=== PATIENT | male | born 1995 | race African-American/Black ===

== ENCOUNTER 2017-03-06 02:26 | Emergency (ER) | payer OTHER ==
[~2017-03-06] VITALS: Ht 170.2 cm; Wt 59.2 kg
[2017-03-06 02:37] VITALS: TEMP 36.5; Ht 170.2 cm; Wt 59.2 kg
[2017-03-06 03:34] LABS: BUN/CREATININE RATIO 8.1 (10-20); CALCIUM 9.2 mg/dl (8.5-10.1); CREATININE 1.2 mg/dl (0.60-1.40); POTASSIUM 3.4 mmol/L (3.5-5.1)
[2017-03-06 04:39] LABS: BENZODIAZEPINE, URINE NEG (NEG); COCAINE,URINE NEG (NEG); PHENCYCLIDINE, URINE NEG (NEG)
--- NOTE | 2017-03-06 05:16 | EMERGENCY ROOM VISIT NOTE ---
History Report prepared by Pham: Staci Al Under the Supervision of: Dr. Lamar Grant D.O. First contact with patient: 02:28 Stated Complaint: ALCOHOL History of Present Illness The patient is a 21 year old male who presents to the Emergency Room with persistent alcohol intoxication starting [employer]. The patient presents to the ED by EMS. He was found outside by the police. He started running away so the police chased and tackled him. He got a cut on his chin. EMS report that he has some slurred speech and thought it was April. He denies any other drug use. He denies any abdominal pain or pain elsewhere. He denies any history of heart problems, diabetes, or other medical problems. He is a senior at [employer]. Source of History: patient, EMS Onset: [employer] Position: other (global) Quality: other (alcohol intoxication) Timing: other (persistent) Associated Symptoms: No abdominal pain Review of Systems See HPI for pertinent positives & negatives. A total of 10 systems reviewed and were otherwise negative. Past Medical & Surgical Medical Problems: (1) No Known Active Medical Problems Family History No pertinent family history stated. Social History Smoking Status: Unknown if Ever Smoked Alcohol Use: occasionally Drug Use: none Housing Status: lives with roommate Occupation Status: [employer] student Current/Historical Medications Unable to Obtain Active Prescriptions or Reported Meds Allergies Coded Allergies: No Known Allergies (Unverified , 01/22/11) Physical Exam Vital Signs Date Time Temp Pulse Resp B/P (MAP) Pulse Ox O2 Delivery O2 Flow Rate FiO2 03/06/17 05:02 109 13 114/52 98 Room Air 03/06/17 04:01 80 13 96/50 93 Room Air 03/06/17 03:15 85 12 105/66 92 Room Air 03/06/17 02:55 93 03/06/17 02:37 36.5 110 18 135/80 96 Room Air 03/06/17 02:37 Room Air Physical Exam General: slurred speech, confused at times, smells of alcohol HEENT: Head - normocephalic, abrasion to the chin Pupils are equal, round, and reactive to light. Extraocular eye muscles are intact, and sclera are anicteric. Nose - moist nasal mucosa without discharge. Mouth - moist buccal mucosa. Oropharynx is nonerythematous and there is no tonsillar exudate or edema noted. Neck: Supple; no JVD, nuchal rigidity, cervical lymphadenopathy. Heart: Tachycardic rate and regular rhythm. There is a normal S1 and S2 with no murmurs, clicks, or gallops appreciated. Lungs: Clear to auscultation bilaterally with no wheezes, rales, or rhonchi. Abdomen: Soft, completely nontender, nondistended, with good bowel sounds. There is an abrasion to the RLQ. There are no palpable pulsatile masses or hepatosplenomegaly. There is no guarding, rigidity, or rebound noted. Extremities: No evidence of cyanosis, clubbing, or edema. There are easily palpable peripheral pulses. Skin: warm and dry with good turgor and no rashes. Medical Decision & Procedures Laboratory Results 03/06/17 02:35 Test 03/06/17 02:35 03/06/17 03:20 Anion Gap 8.0 mmol/L (3-11) Est Creatinine Clear Calc Drug Dose 80.9 ml/min Estimated GFR () 98.9 Estimated GFR (Non- 85.3 BUN/Creatinine Ratio 8.1 (10-20) Calcium Level 9.2 mg/dl (8.5-10.1) Ethyl Alcohol mg/dL 310.0 mg/dl (0-3) Urine Opiates Screen NEG (NEG) Urine Methadone, Qualitative NEG (NEG) Urine Barbiturates NEG (NEG) Urine Phencyclidine (PCP) Level NEG (NEG) Ur Amphetamine/Methamphetamine NEG (NEG) MDMA (Ecstasy) Screen NEG (NEG) Urine Benzodiazepines Screen NEG (NEG) Urine Cocaine Metabolite NEG (NEG) Urine Marijuana (THC) NEG (NEG) Laboratory results per my review. ED Course 0227: The patient was evaluated in room B11A. A complete history and physical examination were performed. Nursing notes and previous electronic medical records were reviewed. This is his 5th ED visit for alcohol related incidents. The patient was placed in the prone position to avoid aspiration. Labs were drawn as above. The patient was observed on the quality assurance monitor and pulse oximeter. 0454: I reevaluated the patient. He is sound asleep and hemodynamically stable. 0545: The patient remains asleep. Vitals are stable. 0630: The patient will be signed out to Dr. Mcadams at the end of my shift. Medical Decision The patient is a 21 year old male who presents to the ED with alcohol intoxication. Differential diagnosis includes alcohol overdose, drug intoxication, head injury, hypoglycemia, facial trauma. Labs: alcohol 310, normal renal function, glucose 137, urine tox screen negative. The patient was brought to the emergency department tonight because he consumed a significant amount of alcohol. It was noted that this is his fifth visit to our ER under alcohol-related incidences. The patient's vitals remained stable. The case will be signed out to Dr. Mcadams at change shift awaiting sobriety. Impression Primary Impression: Alcohol overdose Scribe Attestation The scribe's documentation has been prepared under my direction and personally reviewed by me in its entirety. I confirm that the note above accurately reflects all work, treatment, procedures, and medical decision making performed by me. Departure Information Dispostion Still a Patient Prescriptions Unable to Obtain Active Prescriptions or Reported Meds Referrals No Doctor, Assigned (PCP) Problem Qualifiers Primary Impression: Alcohol overdose Encounter type: initial encounter Injury intent: accidental or unintentional Qualified Codes: T51.91XA - Toxic effect of unspecified alcohol , accidental (unintentional), initial encounter
[2017-03-06 10:33] VITALS: BP 96/43; PULSE 101; O2SAT 97
--- NOTE | 2017-03-06 12:45 | EMERGENCY ROOM VISIT NOTE ---
ED Visit Note First contact with patient: 06:38 21 yr old intoxicated male brought in by EMS after being found intoxicated, running from police before being apprehended. Initially evaluated and then signed out to me by Dr Grant. Abrasions over chin, knees but no significant trauma. Denies headache, neck pain, nausea, vomiting, cp, sob, joint pains nor other issues. Admits he drinks too heavily and admits this is one of multiple ED visits. Reviewed fact this is 5th time we have seen him in ED and the concerns I have regarding him having significant alcohol issue. Admits history of depression with cutting, but denies any current thoughts of harm to self nor others. There is no 302 petition nor clear evidence of patient being risk to himself. To contrary, patient states he is not depressed, not suicidal and has had no recent thoughts of harm to self nor others. I had long chat with patient about my concerns with his alcohol problem. He is aware he has citation by police in his belongings. He notes he will contact Police and University to discuss his issues. He admits he has been told previously he may be kicked out of school due to his run ins with alcohol. He notes if he ever had thoughts of harm he would call 911 or return to ED. He feels safe going home and wishes discharge. He is awake, answers all questions, is appropriately remorseful and will have sober friend take him home. Friend never showed so after a few hours I felt it appropriate for him to be discharged.
== END 2017-03-06 10:40 | disposition home or self-care (01) ==
LOC: EDBD 02:26 → C.EDB 02:27
DX: T51.91XA Toxic effect of unspecified alcohol, accidental (unintentional), initial encounter (principal); Y90.8 Blood alcohol level of 240 mg/100 ml or more